=== PATIENT | female | born 1970 | race Two or more races ===

== ENCOUNTER 2021-10-18 20:51 | Emergency (ER) | payer OTHER, SELFPAY ==
--- NOTE | 2021-10-18 21:24 | ED_ITS ---
HPI - General Adult General Chief complaint: Cardiac Arrest/CPR Stated complaint: CARDIAC ARREST Time Seen by Provider: 10/18/21 21:18 Source: EMS Mode of arrival: EMS Limitations: other History of Present Illness HPI narrative: Patient comes via EMS in cardiac arrest. Prior to arrival, patient was coming of charge, patient had a witnessed cardiac arrest. When EMS arrived, patient had very faint pulses, apneic breathing, patient was bagged for a few minutes, she was taking to the ambulance, immediately per EMS, patient went into asystole. CPR was started, 1 epinephrine given. On arrival to emergency room, patient was still in cardiac arrest, ET tube was dislodged, in a systole. Per EMS, patient has past medical history of CHF, and ?respiratory issues?. On arrival, point of care glucose is 328, patient is likely diabetic Related Data Allergies Allergy/AdvReac Type Severity Reaction Status Date / Time No Known Allergies Allergy Verified 10/18/21 22:08 Review of Systems Review of Systems: Yes Other [facility] Past Medical History Medical History (Updated 10/18/21 @ 21:42 by Alecia Francis MD) CHF (congestive heart failure) Social History Social History Advance Directives: No Advance Directives Information Provided: No Physical Exam ED Vital Signs: BMI result Body Mass Index 47.0 Const Other: Appearance: Unresponsive Eyes: Fixed and dilated, unresponsive to light ENT: Copious amount of vomitus the airway Neck: Normal inspection. Short thick neck, no crepitus CVS: CPR in progress, on rhythm check, asystole Respiratory: No spontaneous respirations Abdomen: Soft and distended Skin: Skin cold and mottled Extremities: No lower extremity edema, no signs of trauma Neuro: Unresponsive Psych: Unresponsive Course Course Course Narrative: Patient was in cardiac arrest for approximately 50 minutes. The whole time she was in asystole, Judith multiple doses of epinephrine were given. Patient was intubated on arrival to the emergency room, it took approximately 4 trials. This was a very difficult intubation. Between intubation attempt by me and my colleague Dr. Pineda, patient was successfully ventilated with an Igel LMA After 50 minutes of CPR, asystole, no spontaneous respirations, time was called at 21:12 Because that led to cardiac arrest it is unclear. Do not have previous medical records for patient, only the history from EMS the patient had history of CHF and ?a respiratory issues . Patient's family was informed that the patient could not be resuscitated. ampoule examiner call has been placed, returned call pending Organ donor bank accepted the patient 22:40, director of medical review call, case was declined. Case # [id number] Medical Decision Making Lab Data Labs: Lab Results 10/18/21 Range/Units 20:57 POC Glucose 328 H (60-115) mg/dL Discharge Plan Discharge Clinical Impression: Cardiac arrest Patient Disposition: Date/Time: 10/18/21 21:12
[2021-10-18 21:28] LABS: Glucose, Whole Blood 328 mg/dL (60-115)
--- NOTE | 2021-10-18 21:52 | PC.NURSE ---
CALL OUT TO THE ANIME ARTIST ( @[phone] GAVE AGE AND REASON OF CALL TO MEDICAL EXAMINERS OFFICE, THEY WILL CALL BACK FOR DEMOGRAPHICS
[2021-10-18 21:53] VITALS: BMI 39.8
--- NOTE | 2021-10-18 22:15 | PC.NURSE ---
pt experienced a witnessed cardiac arrest while at [facility], 911 call placed at 20:18, EMS on scene starting CPR at 2024. pt had a false pulse on EMS arrival that changed to asystole. 22G IV access left hand - intubated. 18G placed L AC, IO placed right tibia, NS started - <300mL given. see code sheet for details. time of called at 21:12. [facility] contacted @ 21:34, pt accepted and on hold - referral #[id number], medical insurance claims specialist contacted - case pending.
--- NOTE | 2021-10-18 23:28 | PC.NURSE ---
spoke w MARC regarding updated family contact info, wt confirmation, [place] [facility] [place]
== END 2021-10-18 23:40 | disposition expired ==
PROVIDERS: Emergency Provider Emergency Medicine; PCP Internal Medicine
DX: I46.9 Cardiac arrest, cause unspecified (principal); I50.9 Heart failure, unspecified
CPT/HCPCS: 82947; 99283; 99284; J0171